=== PATIENT | male | born 1995 | race Caucasian/White ===

== ENCOUNTER 2017-02-20 21:08 | Emergency (ER) | payer BC, OTHER ==
[~2017-02-20] VITALS: Ht 170.2 cm; Wt 68.0 kg
[2017-02-20 21:12] VITALS: TEMP 37.4; Ht 170.2 cm; Wt 68.0 kg
[2017-02-20 21:43] VITALS: O2SAT 98
[2017-02-20] MEDS ORDERED: SODIUM CHLORIDE 0.9% 1000ML 1,000 ML IV STA (21:57)
[2017-02-20 22:06] LABS: CREATININE 1.1 mg/dl (0.60-1.40); POTASSIUM 3.3 mmol/L (3.5-5.1)
[2017-02-20 22:09] LABS: CALCIUM 9.1 mg/dl (8.5-10.1)
[2017-02-20] MEDS ORDERED: LORAZEPAM INJ 0.5 MG in SYRINGE 0.25 ML IV STA (22:13)
[2017-02-20] MEDS ORDERED: BENZTROPINE MESYLATE 1 MG/ML 2 ML AMP IV STA (22:13)
[2017-02-20 22:23] LABS: BASO % 0.3 %; BASO ABS # 0.03 K/uL (0-0.2); COMPLETE YES; EOS % 0.5 %; HEMATOCRIT 43.1 % (42-52); IG% 0.2 %; LYMPH % 20.1 %; LYMPH ABS # 1.85 K/uL (1.2-3.4); MEAN CELL VOLUME 82.9 fL (80-100); MEAN CORPUSCULAR HEMOGLOBIN 31.3 pg (25-34); MEAN CORPUSCULAR HGB CONC 37.8 g/dl (32-36); MEAN PLATELET VOLUME 10.1 fL (7.4-10.4); MONO % 5.8 %; NEUT % 73.1 %; PLATELET COUNT 210 K/uL (130-400)
[2017-02-20 22:33] LABS: MANUAL MICROSCOPIC REQUIRED? YES; URINE APPEARANCE CLEAR (CLEAR); URINE BILIRUBIN NEG (NEG); URINE COLOR YELLOW; URINE NITRITE NEG (NEG); UROBILINOGEN NEG (NEG)
[2017-02-20] MEDS ORDERED: LORAZEPAM 2 MG/ML 1 ML VIAL ONE (22:35)
[2017-02-20 22:49] LABS: REVIEW REQ? NO
[2017-02-20 22:51] LABS: ACETAMINOPHEN < 2 ug/ml (10-30)
[2017-02-20 22:51] LABS: URINE BACTERIA NEG (NEG); URINE RBC 0-4 /hpf (0-4)
[2017-02-20 22:54] LABS: CKMB/CK RATIO 0.6 (0-3.0); MAGNESIUM 2.4 mg/dl (1.8-2.4); THYROID STIMULATING HORMONE 1.92 uIu/ml (0.300-4.500)
[2017-02-20 22:54] LABS: ZZUR CULT IF INDIC CLEAN CATCH NO
[2017-02-20 22:55] LABS: BENZODIAZEPINE, URINE NEG (NEG); COCAINE,URINE POS (NEG); PHENCYCLIDINE, URINE NEG (NEG)
[2017-02-20] MEDS ORDERED: LORAZEPAM 2 MG/ML 1 ML VIAL IV STA (23:28)
[2017-02-21 06:43] VITALS: PULSE 90; O2SAT 96
--- NOTE | 2017-02-21 06:43 | DIAGNOSTIC IMAGING REPORT ---
CT OF THE CERVICAL SPINE CLINICAL HISTORY: Neck pain status post trauma COMPARISON STUDY: No previous studies for comparison. CT DOSE: 960.07 mGy.cm TECHNIQUE: CT scan of the cervical spine was performed from the skull base to the thoracic inlet. Images are reviewed in the axial, sagittal, and coronal planes. IV contrast was not administered for this examination. FINDINGS: The visualized portions of the lung apices reveal no evidence of pneumothorax. The prevertebral soft tissues are normal. No fractures or subluxations are visualized. IMPRESSION: No evidence of acute fracture or traumatic subluxation. Electronically signed by: Avery Quintana M.D. 02/21/2017 6:41 AM Dictated Date/Time: 02/21/2017 6:40 AM
--- NOTE | 2017-02-21 06:54 | EMERGENCY ROOM VISIT NOTE ---
History First contact with patient: 21:39 Chief Complaint: ALCOHOL OVERDOSE Stated Complaint: ALCOHOL OVERDOSE Nursing Triage Summary: alcohol, cocaine and marijuana abuse; see triage note for details History of Present Illness The patient is a 22 year old male who presents to the Emergency Department via EMS for evaluation of alcohol overdose. The patient reports drinking several alcoholic beverages tonight. He also admits to using cocaine and marijuana. He admits to using his prescribed hydroxyzine as well, but reports that he did not take more than his prescribed 50 mg dose. The patient was running from police. He ran through [employer]. He denies striking his head or any loss of consciousness. He rates his discomfort a 0/10. He denies any locations of pain. Review of Systems A complete 10-point Review of Systems was discussed with the patient, with pertinent positives and negatives listed in the History of Present Illness. All remaining Review of Systems questions can be considered negative unless otherwise specified. Social History Smoking Status: Unknown if Ever Smoked Alcohol Use: occasionally Drug Use: cocaine, marijuana Marital Status: single Housing Status: lives with roommate Occupation Status: [email or web address] student Current/Historical Medications Unable to Obtain Active Prescriptions or Reported Meds Physical Exam Vital Signs Date Time Temp Pulse Resp B/P Pulse Ox O2 Delivery O2 Flow Rate FiO2 02/21/17 07:43 146/82 02/21/17 06:43 90 20 130/86 96 Room Air 02/21/17 06:40 89 20 02/21/17 06:30 73 19 94 02/21/17 06:20 68 18 94 02/21/17 06:15 73 18 95 02/21/17 06:05 61 17 02/21/17 06:00 75 18 95 02/21/17 05:50 78 19 95 02/21/17 05:45 76 19 97 02/21/17 05:35 68 18 98 02/21/17 05:30 73 18 97 02/21/17 05:20 72 18 97 02/21/17 05:15 74 19 96 02/21/17 05:05 68 17 96 02/21/17 05:00 75 18 96 02/21/17 04:50 80 19 96 02/21/17 04:20 88 17 94 02/21/17 04:09 78 02/21/17 04:00 90/55 02/21/17 03:50 77 18 96 02/21/17 03:43 107/45 4/21/17 03:20 80 94 02/21/17 02:50 91 94 02/21/17 02:20 94 94 02/21/17 02:10 92 16 Room Air 02/21/17 01:05 97 16 92 Room Air 02/20/17 23:09 131 18 143/89 98 Room Air 02/20/17 23:04 143/87 02/20/17 22:45 132 18 99 02/20/17 22:23 153/94 02/20/17 22:15 135 15 02/20/17 21:45 148 29 02/20/17 21:43 98 Room Air 02/20/17 21:19 128 02/20/17 21:12 37.4 128 16 144/84 95 Room Air Pain Rating (0-10): 0 Physical Exam VITALS - Vitals are noted on the nurse's note and reviewed by myself. Vital signs stable. GENERAL -22-year-old male, in no acute distress, nondiaphoretic, well-developed well-nourished. The patient is visibly intoxicated. Movements of the lips and upper extremities appreciated. SKIN - The skin was without obvious lacerations, or rashes. Superficial abrasions noted in a linear pattern to the bilateral lower extremities. There is no tenting of the skin. Capillary reflex less than 2 seconds. HEENT - Normocephalic, atraumatic. PERRLA. EOMI. Conjunctiva with mild injection without icterus. Tympanic membranes without erythema or effusion bilaterally no hemotympanum. External auditory canals are clear. Nares patent bilaterally. No epistaxis. Oropharynx without erythema or exudate. Uvula midline. Oral mucosal moist. No lymphadenopathy. Neck is supple without cervical spine tenderness. HEART - Regular rate and rhythm without murmurs gallops or rubs. Peripheral pulses 2+. LUNGS - Clear to auscultation bilaterally without wheezes, rales or rhonchi. ABDOMEN - Positive bowel sounds x 4. Normal tympanic percussion. Soft, nontender, without masses or organomegaly. MUSCULOSKELETAL - Gross motor function of the upper and lower extremities intact. NEUROLOGIC - The patient is visibly intoxicated. Medical Decision & Procedures ER Provider Diagnostic Interpretation: Radiological imaging and reports were reviewed by myself. Radiologist's Interpretation as follows: CT SCAN OF THE BRAIN WITHOUT IV CONTRAST CLINICAL HISTORY: Intoxication. Head injury. COMPARISON STUDY: No priors. TECHNIQUE: Unenhanced axial CT scan of the brain is performed from the vertex to the skull base. Automated dose control exposure was utilized. FINDINGS: Brain parenchyma: The brain parenchyma is normal in appearance. There is no hemorrhage, mass effect, or evidence of acute territorial ischemia by CT criteria. Hernandez-white matter is preserved. No extra-axial fluid collection is seen. Ventricles, sulci, cisterns: Normal in configuration. Intracranial vasculature: The visualized intracranial vasculature at the skull base is normal in appearance. Calvarium: There is no depressed calvarial fracture. Sinuses and mastoids: The visualized paranasal sinuses are clear. The mastoid air cells are well pneumatized. Orbits: The bony orbits are grossly intact. IMPRESSION: No acute intracranial abnormality. CT OF THE CERVICAL SPINE CLINICAL HISTORY: Neck pain status post trauma COMPARISON STUDY: No previous studies for comparison. CT DOSE: 960.07 mGy.cm TECHNIQUE: CT scan of the cervical spine was performed from the skull base to the thoracic inlet. Images are reviewed in the axial, sagittal, and coronal planes. IV contrast was not administered for this examination. FINDINGS: The visualized portions of the lung apices reveal no evidence of pneumothorax. The prevertebral soft tissues are normal. No fractures or subluxations are visualized. IMPRESSION: No evidence of acute fracture or traumatic subluxation. Laboratory Results 02/20/17 22:10 Red Blood Count 5.20, Mean Corpuscular Volume 82.9, Mean Corpuscular Hemoglobin 31.3, Mean Corpuscular Hemoglobin Concent 37.8, Mean Platelet Volume 10.1, Neutrophils (%) (Auto) 73.1, Lymphocytes (%) (Auto) 20.1, Monocytes (%) (Auto) 5.8, Eosinophils (%) (Auto) 0.5, Basophils (%) (Auto) 0.3, Neutrophils # (Auto) 6.72, Lymphocytes # (Auto) 1.85, Monocytes # (Auto) 0.53, Eosinophils # (Auto) 0.05, Basophils # (Auto) 0.03 02/20/17 21:35 Test 02/20/17 21:35 02/20/17 21:50 02/20/17 22:10 02/20/17 22:15 Anion Gap 10.0 mmol/L (3-11) Est Creatinine Clear Calc Drug Dose 100.2 ml/min Estimated GFR () 111.4 Estimated GFR (Non- 96.1 BUN/Creatinine Ratio 9.0 (10-20) Calcium Level 9.1 mg/dl (8.5-10.1) Ethyl Alcohol mg/dL 264.0 mg/dl (0-3) Urine Color YELLOW Urine Appearance CLEAR (CLEAR) Urine pH 6.0 (4.5-7.5) Urine Specific Copen 1.010 (1.000-1.030) Urine Protein 1+ (NEG) Urine Glucose (UA) NEG (NEG) Urine Ketones NEG (NEG) Urine Occult Blood TRACE (NEG) Urine Nitrite NEG (NEG) Urine Bilirubin NEG (NEG) Urine Urobilinogen NEG (NEG) Urine Leukocyte Esterase NEG (NEG) Urine RBC 0-4 /hpf (0-4) Urine WBC 1-5 /hpf (0-5) Urine Epithelial Cells 5-10 /lpf (0-5) Urine Bacteria NEG (NEG) Urine Opiates Screen NEG (NEG) Urine Methadone, Qualitative NEG (NEG) Urine Barbiturates NEG (NEG) Urine Phencyclidine (PCP) Level NEG (NEG) Ur Amphetamine/Methamphetamine NEG (NEG) MDMA (Ecstasy) Screen NEG (NEG) Urine Benzodiazepines Screen NEG (NEG) Urine Cocaine Confirmation [id number] NG/ML ([id number]) Urine Cocaine Metabolite POS (NEG) Urine Marijuana (THC) POS (NEG) Urine Marijuana (THC Carboxy Acid) 60 NG/ML (CUTOFF=5) White Blood Count 9.20 K/uL (4.8-10.8) Red Blood Count 5.20 M/uL (4.7-6.1) Hemoglobin 16.3 g/dL (14.0-18.0) Hematocrit 43.1 % (42-52) Mean Corpuscular Volume 82.9 fL (80-100) Mean Corpuscular Hemoglobin 31.3 pg (25-34) Mean Corpuscular Hemoglobin Concent 37.8 g/dl (32-36) Platelet Count 210 K/uL (130-400) Mean Platelet Volume 10.1 fL (7.4-10.4) Neutrophils (%) (Auto) 73.1 % Lymphocytes (%) (Auto) 20.1 % Monocytes (%) (Auto) 5.8 % Eosinophils (%) (Auto) 0.5 % Basophils (%) (Auto) 0.3 % Neutrophils # (Auto) 6.72 K/uL (1.4-6.5) Lymphocytes # (Auto) 1.85 K/uL (1.2-3.4) Monocytes # (Auto) 0.53 K/uL (0.11-0.59) Eosinophils # (Auto) 0.05 K/uL (0-0.5) Basophils # (Auto) 0.03 K/uL (0-0.2) RDW Standard Deviation 38.6 fL (36.4-46.3) RDW Coefficient of Variation 12.8 % (11.5-14.5) Immature Granulocyte % (Auto) 0.2 % Immature Granulocyte # (Auto) 0.02 K/uL (0.00-0.02) Magnesium Level 2.4 mg/dl (1.8-2.4) Total Creatine Kinase 170 U/L (39-308) Creatine Kinase MB 1.1 ng/ml (0.5-3.6) Creatine Kinase MB Ratio 0.6 (0-3.0) Lipase 107 U/L (73-393) Thyroid Stimulating Hormone (TSH) 1.920 uIu/ml (0.300-4.500) Salicylates Level < 1.7 mg/dl (2.8-20) Acetaminophen Level < 2 ug/ml (10-30) Bedside Troponin I 0.000 ng/ml (0-0.045) Medications Administered Medications (Trade) Dose Ordered Sig/Aleja Route Start Time Stop Time Status Last Admin Dose Admin Sodium Chloride (Nss 1000ml) 1,000 ml @ 999 mls/hr Q1H1M STAT IV 02/20/17 21:57 02/20/17 22:57 DC 02/20/17 21:57 999 MLS/HR Benztropine Mesylate (Cogentin Inj) 1 mg NOW STAT IV 02/20/17 22:13 02/20/17 22:15 DC 02/20/17 22:35 1 MG Lorazepam (Ativan Inj) 2 mg STK-MED ONCE .ROUTE 02/20/17 22:35 02/20/17 22:36 DC 02/20/17 22:35 0.5 MG Lorazepam (Ativan Inj) 1 mg NOW STAT IV 02/20/17 23:28 02/20/17 23:29 DC 02/20/17 23:28 1 MG Procedure Patient was placed on the adult school counselor and monitored throughout the entire extent of their stay. In addition, the patient's pulse oximetry was monitored throughout the entire stay. Any abnormalities or aberrancies were addressed appropriately. ECG Indication: toxicologic Rate (beats per minute): 131 Rhythm: sinus tachycardia Findings: no acute ischemic change, no ectopy Comparison ECG Date: no prior available ED Course Patient was seen and evaluated by myself. On initial presentation, the patient has what appears to have exam findings consistent with dystonic-like reaction. He admits to taking hydroxyzine in addition to multiple drugs and alcohol today. Because of this, labs were drawn and a saline lock was placed. Patient was placed in a adult school counselor throughout his entire stay. The patient was initially treated with 1 mg Cogentin and 0.[address] the head and cervical spine were obtained. He was hydrated with a 1000 mL normal saline bolus. After CT, the patient became increasingly agitated towards staff. Because of this, he was treated with an additional 1 mg Ativan intravenously. Laboratory results demonstrate no acute leukocytosis, worrisome anemia, or bandemia. The patient has no significant electrolyte abnormalities. Cardiac enzymes are negative. Troponin was negative. Alcohol was elevated at 264.0 mg/ dL. He tested positive for both cocaine and marijuana metabolites. Patient was monitored in the emergency department for several hours. In the morning, he was awoken and was felt to be more sober at this point. The patient was instructed on refraining from illicit drug use and heavy alcohol use. He was educated on worrisome symptoms for return visit to the emergency department. Patient discharged home in good condition. Medical Decision Given the patient's presentation and exam finds, I did elect to perform the above-mentioned workup. The patient presents today after abusing multiple drugs. He is significantly intoxicated. He sustained an injury after running from police. He admits to multiple drug use. He was mildly dystonic initially. He does admit that he tends to develop which when he is using stimulants. Because of this, he was treated with Cogentin and Ativan. He received an additional dose of Ativan for agitation. He was monitored throughout his entire stay in the emergency department and awoke sober and much better. The [facility]'s visit. He will return for any changing or worsening symptoms. Patient discharged home in good condition. In the evaluation and treatment of this patient, the following differential diagnoses were considered: Hypoglycemia, Barbiturate Toxicity, Benzodiazepine Toxicity, Depression and Suicidality, Diabetic Ketoacidosis, Encephalitis, Ethylene Glycol Toxicity, Meningitis, Metabolic Acidosis, Opioid Toxicity, CVA, TIA, Intracranial Abnormality, Acute Psychosis, Amongst Others. Impression Primary Impression: Alcohol overdose Additional Impressions: Cocaine use Marijuana use Departure Information Dispostion Home / Self-Care Condition GOOD Prescriptions Unable to Obtain Active Prescriptions or Reported Meds Referrals No Doctor, Assigned (PCP) Patient Instructions [facility]: [employer] and Alcohol Related Visits Additional Instructions You have been seen in the emergency room today for alcohol overdose and multi drug use. Please refrain from drug and alcohol use. For pain control, you can use the following [id number] medicines (if >12 yo): - Regular strength (325mg/tab) Tylenol (acetaminophen) 2 tabs every 4-6 hours as needed. Do not exceed 12 tablets in a 24 hour period. Avoid taking more than 4 grams (4000 mg) of Tylenol per day. This includes any other sources of acetaminophen you may take on a regular basis. - Regular strength (200 mg/tab) Advil (ibuprofen) 1-2 tabs every 4-6 hours as needed. Do not exceed a dose of 3200 mg per day. Follow-up with [facility] services as needed. Problem Qualifiers Primary Impression: Alcohol overdose Encounter type: initial encounter Injury intent: accidental or unintentional Qualified Codes: T51.91XA - Toxic effect of unspecified alcohol , accidental (unintentional), initial encounter
--- NOTE | 2017-02-21 07:10 | DIAGNOSTIC IMAGING REPORT ---
CT SCAN OF THE BRAIN WITHOUT IV CONTRAST CLINICAL HISTORY: Intoxication. Head injury. COMPARISON STUDY: No priors. TECHNIQUE: Unenhanced axial CT scan of the brain is performed from the vertex to the skull base. Automated dose control exposure was utilized. FINDINGS: Brain parenchyma: The brain parenchyma is normal in appearance. There is no hemorrhage, mass effect, or evidence of acute territorial ischemia by CT criteria. Hernandez-white matter is preserved. No extra-axial fluid collection is seen. Ventricles, sulci, cisterns: Normal in configuration. Intracranial vasculature: The visualized intracranial vasculature at the skull base is normal in appearance. Calvarium: There is no depressed calvarial fracture. Sinuses and mastoids: The visualized paranasal sinuses are clear. The mastoid air cells are well pneumatized. Orbits: The bony orbits are grossly intact. IMPRESSION: No acute intracranial abnormality. Electronically signed by: Jason Magallon M.D. 02/21/2017 7:08 AM Dictated Date/Time: 02/21/2017 7:06 AM
[2017-02-21 07:43] VITALS: BP 146/82
[2017-02-25 11:44] LABS: COCAINE, URINE 3660 NG/ML (CUTOFF=100)
== END 2017-02-21 07:43 | disposition home or self-care (01) ==
LOC: C.EDA 21:11
DX: T51.0X1A Toxic effect of ethanol, accidental (unintentional), initial encounter (principal); X58.XXXA Exposure to other specified factors, initial encounter; F12.90 Cannabis use, unspecified, uncomplicated; F14.90 Cocaine use, unspecified, uncomplicated